=== PATIENT | male | born 1980 | race Caucasian/White ===

== ENCOUNTER → 2018-03-21 | Outpatient (CLI) | payer BC ==
[2018-03-21 18:12] LABS: BASOPHILS ABSOLUTE AUTO 0.03 K/mm3 (0.00-0.23); BASOPHILS PERCENT AUTO 0 % (0-2); EOSINOPHILS ABSOLUTE AUTO 0.11 K/mm3 (0.00-0.68); EOSINOPHILS PERCENT AUTO 1 % (0-6); Hematocrit 44.4 % (37.0-53.0); Hemoglobin 15.2 g/dL (13.5-17.5); IMMATURE GRAN ABSOLUTE AUTO 0.02 K/mm3 (0.00-0.10); IMMATURE GRAN PERCENT AUTO 0 % (0-1); LYMPHOCYTES ABSOLUTE AUTO 2.24 K/mm3 (0.84-5.20); LYMPHOCYTES PERCENT AUTO 29 % (21-46); MONOCYTES ABSOLUTE AUTO 0.72 K/mm3 (0.16-1.47); MONOCYTES PERCENT AUTO 9 % (4-13); Mean Corpuscular HGB 28.9 pg (26.0-34.0); Mean Corpuscular HGB Conc 34.2 g/dL (31.5-36.5); Mean Corpuscular Volume 84 fL (80-100); Mean Platelet Volume 10.1 fL (9.1-12.4); NEUTROPHILS ABSOLUTE AUTO 4.74 K/mm3 (1.96-9.15); NEUTROPHILS PERCENT AUTO 60 % (41-73); Platelet Count 248 K/mm3 (150-400); RDW Coefficient Variation 12.8 % (11.7-14.2); RDW Standard Deviation 38.8 fL (35.1-46.3); Red Blood Cell Count 5.26 M/mm3 (4.30-5.90); White Blood Cell Count 7.86 K/mm3 (4.00-11.30)
[2018-03-21 18:30] LABS: Anion Gap 7 mmol/L (6-16); Blood Urea Nitrogen 19 mg/dL (8-24); Bun/Creatinine Ratio 18.6 (12.0-20.0); CO2, Blood 28 mmol/L (21-32); Calcium, Blood 9.4 mg/dL (8.5-10.1); Chloride, Blood 104 mmol/L (98-108); Creatinine, Blood 1.02 mg/dL (0.60-1.20); Glomerular Filtration Rate >60 (60-); Glucose, Blood 93 mg/dL (70-99); Potassium, Blood 3.9 mmol/L (3.5-5.5); Sodium, Blood 139 mmol/L (136-145)
== END | disposition home or self-care (01) ==
LOC: LAB SHORT 18:07 → LAB EV 18:07
PROVIDERS: Family Medicine
DX: R00.2 Palpitations (principal)
CPT/HCPCS: 80048; 84443; 85025

== ENCOUNTER 2018-07-08 18:49 | Observation (INO) | payer BC ==
[~2018-07-08] VITALS: Ht 180.3 cm; Wt 99.8 kg
[2018-07-08 19:09] LABS: BASOPHILS ABSOLUTE AUTO 0.03 K/mm3 (0.00-0.23); BASOPHILS PERCENT AUTO 0 % (0-2); EOSINOPHILS ABSOLUTE AUTO 0.13 K/mm3 (0.00-0.68); EOSINOPHILS PERCENT AUTO 2 % (0-6); Hematocrit 45.6 % (37.0-53.0); Hemoglobin 15.7 g/dL (13.5-17.5); IMMATURE GRAN ABSOLUTE AUTO 0.01 K/mm3 (0.00-0.10); IMMATURE GRAN PERCENT AUTO 0 % (0-1); LYMPHOCYTES ABSOLUTE AUTO 2.52 K/mm3 (0.84-5.20); LYMPHOCYTES PERCENT AUTO 33 % (21-46); MONOCYTES PERCENT AUTO 7 % (4-13); Mean Corpuscular HGB 29.6 pg (26.0-34.0); Mean Corpuscular HGB Conc 34.4 g/dL (31.5-36.5); Mean Corpuscular Volume 86 fL (80-100); Mean Platelet Volume 9.7 fL (9.1-12.4); NEUTROPHILS ABSOLUTE AUTO 4.41 K/mm3 (1.96-9.15); NEUTROPHILS PERCENT AUTO 58 % (41-73); Platelet Count 257 K/mm3 (150-400); RDW Coefficient Variation 12.6 % (11.7-14.2); RDW Standard Deviation 39.5 fL (35.1-46.3); Red Blood Cell Count 5.31 M/mm3 (4.30-5.90)
[2018-07-08 19:10] LABS: Chloride (POC) 102 mmol/L (98-108); Creatinine (POC) 0.9 mg/dL (0.8-1.3); Glucose (ISTAT POC) 138 mg/dL (70-99); Hemoglobin (POC) 15.6 g/dL (13.5-17.5); Potassium (POC) 3.7 mmol/L (3.5-5.5); Sodium (POC) 141 mmol/L (135-148); Total CO2 (POC) 26 mmol/L (21-32)
[2018-07-08 19:45] LABS: Alanine Aminotransfer (ALT/SGP 57 U/L (12-78); Albumin/Globulin Ratio 1.1 (0.8-1.8); Alk Phos 96 U/L (50-136); Anion Gap 7 mmol/L (6-16); Aspartate Aminotrans (AST/SGOT 36 U/L (12-37); Bilirubin, Total 0.4 mg/dL (0.1-1.0); Blood Urea Nitrogen 25 mg/dL (8-24); Bun/Creatinine Ratio 25.2 (12.0-20.0); CO2, Blood 25 mmol/L (21-32); Calcium, Blood 8.8 mg/dL (8.5-10.1); Chloride, Blood 106 mmol/L (98-108); Creatinine, Blood 0.99 mg/dL (0.60-1.20); Globulin, Blood 3.5 g/dL (2.2-4.0); Glomerular Filtration Rate >60 (60-); Glucose, Blood 140 mg/dL (70-99); Potassium, Blood 3.7 mmol/L (3.5-5.5); Sodium, Blood 138 mmol/L (136-145); Total Protein, Blood 7.5 g/dL (6.4-8.2); Troponin I <0.015 ng/mL (0.000-0.040)
[2018-07-08] MEDS ORDERED: Benicar Hct 201 EACH (20:02)
--- NOTE | 2018-07-08 22:54 | NUR ---
transfer report on PT being admitted with bradycardia and syncope with earlier chest pain . obs status. ed report given by RN. Await admission
--- NOTE | 2018-07-09 05:43 | NUR ---
38 YEAR OLD MALE FROM [place] ADMITTED AFTER SYNCOPE AT HOME WITHNESS BY WHO IS A NURSE. SHE SAID HE WAS OUT ABOUT 20 SECONDS AND HEW FELT WEAK AND DIZZY AFTER EVENT. SHE SAID HE HAS BEEN DOING HIS USUAL ACTIVITY BUT DRANK LESS WATER THE DAY PRIOR TO SYNCOPAL EPISODE AND HAS STARTED ON A NEW RX HCTZ 3 DAYS PRIOR TO EVENT TO TREAT HYPERTENSION. PT HAS CARDIAC CONSULT FOR BRADYCARDIA AND CHEST PRESSURE AND PALPATATIONS ON 06/23/18 AND WAS TOLD HE HAD LT VENT HYPERTROPHY FOR UNCONTROLLED HTN. DENIES DIZZINESS OR CHEST PRESSURE OR PALPATIONS SINCE ADMISSION AT 2248. AT BEDSIDE SUPPORTIVE. ON TELE MONITOR WITH SINUS RICHY LOWS 42 FOR SEVERAL MINUTES HIGH OF 50 THIS AM. SNORES AND SLEPT WITHOUT COMPLAINTS.
--- NOTE | 2018-07-09 06:00 | NUR ---
IV PRESENT ON ADMISSION FROM ER. SL PATENT DRESSING INTACT
--- NOTE | 2018-07-09 08:05 | NUR ---
FACTORY MANAGER CALLED; HR 36-40; PT LYING IN BED TALKING WITH FAMILY AND IN NO DISTRESS; DENIES SOB, CP OR DIZZINESS. PATIENT SAT ON EDGE OF BED AND HR INCREASED TO 55-60.
--- NOTE | 2018-07-09 08:40 | NUR ---
DR. MORAN NOTIFIED OF PT'S BRADYCARDIA VIA ANSWERING SERVICE.
[2018-07-09 10:09] LABS: Anion Gap 5 mmol/L (6-16); Blood Urea Nitrogen 20 mg/dL (8-24); Bun/Creatinine Ratio 22.5 (12.0-20.0); CO2, Blood 27 mmol/L (21-32); Calcium, Blood 8.8 mg/dL (8.5-10.1); Chloride, Blood 109 mmol/L (98-108); Creatinine, Blood 0.89 mg/dL (0.60-1.20); Glomerular Filtration Rate >60 (60-); Glucose, Blood 101 mg/dL (70-99); Magnesium, Blood 1.9 mg/dL (1.6-2.4); Potassium, Blood 4.5 mmol/L (3.5-5.5); Sodium, Blood 141 mmol/L (136-145); Thyroxine (T4) 6.2 ug/dL (4.5-12.1); Troponin I <0.015 ng/mL (0.000-0.040)
[2018-07-09 10:12] LABS: Thyroid Stimulating Hormone 0.768 uIU/mL (0.360-4.800)
--- NOTE | 2018-07-09 15:40 | NUR ---
DISCHARGE SUMMARY DC'D VIA W/C POV WITH SPOUSE. IV DISCONTINUED INTACT; PT AND SPOUSE VERBALIZED UNDERSTANDING OF FOLLOW UP WITH DR. QUAN NEXT WEEK.
== END 2018-07-09 15:54 | disposition home or self-care (01) ==
LOC: ER 18:49 → MEDS 18:50 → ER 18:50 → MEDS 18:51
PROVIDERS: Emergency Medicine; ADMIT Family Medicine
DX: R55 Syncope and collapse (principal); R00.1 Bradycardia, unspecified; R07.89 Other chest pain; I10 Essential (primary) hypertension; R40.20 Unspecified coma; Z79.899 Other long term (current) drug therapy
CPT/HCPCS: 36415; 71046; 80047; 80048; 80053; 83735; 83880; 84436; 84443; 84484; 85014; 85025; 85379; 93005; 93010; 96360; 96372; 99285-25; G0378; J1650; J7030

== ENCOUNTER 2018-10-12 00:25 | Day surgery (SDC) | payer BC ==
[~2018-10-12 00:25] MED LIST: Benicar Hct 201 EACH
== END 2018-10-12 08:30 | disposition home or self-care (01) ==
LOC: ATC 00:25
DX: R55 Syncope and collapse (principal); R00.1 Bradycardia, unspecified; I10 Essential (primary) hypertension; Z79.899 Other long term (current) drug therapy
CPT/HCPCS: 36415; 80400; 82533; 96372; J0834

== ENCOUNTER → 2021-06-04 | Outpatient (CLI) | payer BC ==
[2021-06-04 13:41] LABS: BASOPHILS ABSOLUTE AUTO 0.05 K/mm3 (0.00-0.23); BASOPHILS PERCENT AUTO 1 % (0-2); EOSINOPHILS ABSOLUTE AUTO 0.11 K/mm3 (0.00-0.68); EOSINOPHILS PERCENT AUTO 2 % (0-6); Hematocrit 49.8 % (37.0-53.0); Hemoglobin 16.8 g/dL (13.5-17.5); IMMATURE GRAN ABSOLUTE AUTO 0.02 K/mm3 (0.00-0.10); IMMATURE GRAN PERCENT AUTO 0 % (0-1); LYMPHOCYTES ABSOLUTE AUTO 1.99 K/mm3 (0.84-5.20); LYMPHOCYTES PERCENT AUTO 31 % (21-46); MONOCYTES ABSOLUTE AUTO 0.54 K/mm3 (0.16-1.47); MONOCYTES PERCENT AUTO 9 % (4-13); Mean Corpuscular HGB 28.6 pg (26.0-34.0); Mean Corpuscular HGB Conc 33.7 g/dL (31.5-36.5); Mean Corpuscular Volume 85 fL (80-100); Mean Platelet Volume 10.3 fL (9.1-12.4); NEUTROPHILS ABSOLUTE AUTO 3.62 K/mm3 (1.96-9.15); NEUTROPHILS PERCENT AUTO 57 % (41-73); Platelet Count 252 K/mm3 (150-400); RDW Coefficient Variation 12.7 % (11.7-14.2); RDW Standard Deviation 38.9 fL (35.1-46.3); Red Blood Cell Count 5.88 M/mm3 (4.30-5.90); White Blood Cell Count 6.33 K/mm3 (4.00-11.30)
[2021-06-04 14:11] LABS: Alanine Aminotransfer (ALT/SGP 121 U/L (12-78); Albumin, Blood 4.1 g/dL (3.4-5.0); Albumin/Globulin Ratio 1.1 (0.8-1.8); Alk Phos 92 U/L (50-136); Anion Gap 7 mmol/L (6-16); Aspartate Aminotrans (AST/SGOT 53 U/L (12-37); Bilirubin, Total 0.6 mg/dL (0.1-1.0); Blood Urea Nitrogen 18 mg/dL (8-24); Bun/Creatinine Ratio 22.9 (12.0-20.0); CHOL/HDL RATIO 6.1; CO2, Blood 28 mmol/L (21-32); Calcium, Blood 9.6 mg/dL (8.5-10.1); Chloride, Blood 106 mmol/L (98-108); Cholesterol 230 mg/dL (50-200); Creatinine, Blood 0.79 mg/dL (0.60-1.20); Globulin, Blood 3.8 g/dL (2.2-4.0); Glomerular Filtration Rate >60 (60-); Glucose, Blood 91 mg/dL (70-99); HDL Cholesterol 38 mg/dL (>39); LDL/HDL RATIO 3.8; Low Density Lipoprotein Chol 146 mg/dL (0-110); Sodium, Blood 141 mmol/L (136-145); Thyroid Stimulating Hormone 0.921 uIU/mL (0.360-4.800); Total Protein, Blood 7.9 g/dL (6.4-8.2); Triglycerides 230 mg/dL (30-140); Very Low Density Lipoprot Chol 46 mg/dL (6-28)
== END | disposition home or self-care (01) ==
LOC: LAB SHORT 13:22 → LAB 13:22
PROVIDERS: Hospitalist
DX: I10 Essential (primary) hypertension (principal)
CPT/HCPCS: 80053; 80061; 84443; 85025

== ENCOUNTER 2025-01-19 12:08 | Day surgery (SDC) | payer BC ==
[~2025-01-19] VITALS: Ht 177.8 cm; Wt 99.8 kg
[~2025-01-19 12:08] MED LIST changes: +Bupivacaine 0.5% W/EPI 1:200000 SDV 30 ML Vial ONE
[2025-01-19] MEDS ORDERED: CeFAZolin Sodium 2,000 MG VIAL ONE (12:19)
[2025-01-19] MEDS ORDERED: AMLODIPINE BESYL5 MG (12:37)
[2025-01-19] MEDS ORDERED: IBUP400 (12:38)
[2025-01-19] MEDS ORDERED: FentaNYL Citrate 50 MCG/ML 2 ML Injection ONE ×3 (12:58→15:48)
[2025-01-19] MEDS ORDERED: Midazolam HCL 1 MG/ML 5MLVIAL ONE (13:35)
--- NOTE | 2025-01-19 14:07 | NUR ---
01/19/25 1407 Ryann Rankin PT HAD A POP BLOCK ON LEFT LEG. TIMEOUT AT 1352 START AT 1354. END AT 1358 PT WAS ON CONTINUOUS PULSE OX MONITORING.
[2025-01-19] MEDS ORDERED: Sugammadex Sodium 200 MG/2ML SDV (100 MG/ML) ONE (14:19)
[2025-01-19] MEDS ORDERED: HYDROcodone 5-APAP 325 TAB ONE (16:17)
[2025-01-19 16:48] VITALS: BP 138/68
--- NOTE | 2025-01-19 17:01 | NUR ---
01/19/25 1701 [facility] PT REPORTS MANAGEABLE LEVEL OF PAIN AND IS AGREEABLE TO D/C HOME.
== END 2025-01-19 17:01 | disposition home or self-care (01) ==
LOC: ORSCSDS 12:08
PROVIDERS: Podiatrist Foot & Ankle Surgery
PROC: 0LQN0ZZ Repair Right Lower Leg Tendon, Open Approach (ICD-10-PCS; principal; 2025-01-19 13:30)
PROC: 0QBM0ZZ Excision of Left Tarsal, Open Approach (ICD-10-PCS; principal; 2025-01-19 13:30)
DX: M76.62 Achilles tendinitis, left leg (principal); M77.32 Calcaneal spur, left foot; I10 Essential (primary) hypertension; Z79.899 Other long term (current) drug therapy
CPT/HCPCS: A6253; A9270; C1713; J0690; J2250; J2704; J3010; J7120